=== PATIENT | female | born 1990 | race American Indian/Alaskan Native ===

== ENCOUNTER 2018-01-07 09:08 | Day surgery (SDC) | payer BC ==
--- NOTE | 2018-01-06 22:18 | History and Physical Report ---
History of Present Illness Date of examination: 01/06/18 Chief complaint: dysfunctional uterine bleeding History of present illness: Pt is a 27 year old -[place] female nulligravida who presents with dysfunctional uterine bleeding not responsive to medical management with OCPs and an apparently hyperplastic endometrium on ultrasound at [facility] on . She elects for surgical management at this time. 01/04/18: H/H 11.7/35.5 Uterus: 9.1x 4.2x 5.4 cm; Endometrium markedly thickened at 24 mm. Right ovary 2.7x 2.0 x 1.7 cm. Past History Past Medical History: other (obesity ) Past Surgical History: tonsillectomy RN CIRCULATING History: abnormal PAP smear, herpes, other (PCOS) Family/Genetic History: diabetes Social history: no significant social history - Obstetrical History : 0 Medications and Allergies Allergies Allergy/AdvReac Type Severity Reaction Status Date / Time aspirin Allergy Unknown Verified 10/08/15 12:39 Home Medications Medication Instructions Recorded Confirmed Last Taken Type Dextromethorphan/Benzocaine 1 each PO QID #40 lozenge 10/08/15 Unknown Rx [Cepacol Sorethroat-Cough Tank] Review of Systems All systems: negative - Physical Exam Breasts: Positive: deferred Cardiovascular: Regular rate Lungs: Positive: Clear to auscultation Abdomen: Positive: soft (obese) Extremities: Positive: normal Results All other labs normal. Assessment and Plan A: Dysfunctional Uterine Bleeding Abnormal pelvic ultrasound- thickened endometrial stripe PCOS Morbid Obesity P: Proceed with dilation and curettage, hysteroscopy, Myosure endometrial sampling, and other indicated procedures
[~2018-01-07 09:08] MED LIST: ANCEF/STERILE WATER 2 GM/20 ML 2 GM/20 ML SYRINGE IV NR; LACTATED RINGERS 1,000 ML IV SCH
[2018-01-07] MEDS ORDERED: VERSED IV ONE (09:55)
--- NOTE | 2018-01-07 10:11 | Anesthesia Day of Surgery ---
Anesthesia Day of Surgery - Day of Surgery Patient Examined: Yes Patient H&P Reviewed: Yes Patient is NPO: Yes
--- NOTE | 2018-01-07 10:12 | Anesthesia Consultation ---
Anesthesia Consult and Med Hx Date of service: 01/07/18 - Airway Anesthetic Teeth Evaluation: Good ROM Head & Neck: Adequate Mental/Hyoid Distance: Adequate Mallampati Class: Class II Intubation Access Assessment: Probably Good - Pulmonary Exam CTA: Yes (hx of Asthma) - Cardiac Exam Cardiac Exam: RRR - Pre-Operative Health Status ASA Pre-Surgery Classification: ASA2 Proposed Anesthetic Plan: General - Pre-Anesthesia Comment Pre-Anesthesia Comments: Given Dilaudid in preop. 1 mg IV, versed. GA with LMA ok - Pulmonary Hx Asthma: Yes
[2018-01-07] MEDS ORDERED: ZOFRAN IV PRN (10:13)
[2018-01-07] MEDS: DILAUDID IV SCH ×2 (10:25→10:35)
[2018-01-07 10:43] LABS: Hematocrit 31.4 % (30.3-42.9); Hemoglobin 10.1 gm/dl (10.1-14.3); Mean Corpuscular HGB Conc 32 % (30-34); Mean Corpuscular Hemoglobin 27 pg (28-32); Mean Corpuscular Volume 83 fl (79-97); Platelet Count 346 K/mm3 (140-440); Red Blood Count 3.78 M/mm3 (3.65-5.03); Red Cell Distribution Width 14.2 % (13.2-15.2)
[2018-01-07] MEDS ORDERED: XYLOCAINE MPF 2% ONE (12:01)
[2018-01-07] MEDS ORDERED: DIPRIVAN 10 MG/ML IV ONE (12:01)
[2018-01-07] MEDS ORDERED: SUBLIMAZE ONE (12:44)
[2018-01-07] MEDS ORDERED: NACL 0.9% IR ONE (12:54)
[2018-01-07] MEDS ORDERED: NACL 0.9% 1000 ML 1,000 ML ONE (13:30)
[2018-01-07] MEDS: DILAUDID IV PRN ×2 (13:49→14:00)
--- NOTE | 2018-01-07 14:24 | Operative Report ---
Operative Report Operative Report: Date of procedure: January 07, 2018 Preoperative diagnosis: 1) Dysfunctional Uterine Bleeding 2) Morbid Obesity 3) Abnormal Pelvic Ultrasound- hyperplastic endometrium Postoperative diagnosis: Same Procedure: 1)Diagnostic Hysteroscopy 2)Dilation and Curettage 3)Myosure endometrial sampling Surgeon: Leandra Roque M.D. Findings: 1) Small anteverted mobile uterus that sounded to 9 cm 2) Proliferative endometrium and clots on hysteroscopy 3) Cervix 1 cm dilated prior to the case Anesthesia: General with LMA Estimated blood loss: 150 mL IV fluid: 1000 mL Specimens: endometrial curettings to pathology Drains: None Complications: None Disposition: Stable to PACU Indications for procedure: The patient is a 27 year old -[place] female nulligravida who presents with dysfunctional uterine bleeding not responsive to medical management with OCPs and an apparently hyperplastic endometrium on ultrasound at [facility] on 01/04/18. She elects for surgical management at this time. Operation in detail: After the risks, benefits, alternatives and complications of the procedure were explained to the patient, she gave informed consent for the procedure. She was subsequently taken to the operating room and placed in the dorsal supine position. SCDs were noted to be in place and functioning. General anesthesia was then induced without difficulty. The patient was in placed in the dorsal lithotomy position and prepped and draped in normal sterile fashion. A timeout was performed. An exam under anesthesia was performed yielding a mobile anteverted uterus with a cervix dilated 1 cm. The bladder was then catheterized and drained of 50 mL of clear but concentrated urine. An open sided speculum was then placed into the vagina for adequate visualization of the cervix. The anterior lip of the cervix was then grasped with a tenaculum for traction. The uterus was then sounded to 9 cm. The cervix was able to accommodate the hysteroscope without dilation. At this time a hysteroscope was introduced to visualize the endometrial cavity which revealed proliferative endometrium and blood clots. A Myosure device was then used to perform endometrial sampling. All instruments were removed atraumatically from the uterus. A sharp endometrial curettage was then performed and all the curettings were sent to pathology. At this time the single-tooth tenaculum was removed from the cervix. Hemostasis was noted. All instruments were removed from the vagina atraumatically and the procedure was ended. The patient was placed into the dorsal supine position and extubated without difficulty. She was subsequently taken to the PACU in stable condition. She tolerated the procedure well. All counts were correct 2.
--- NOTE | 2018-01-07 14:25 | Short Stay Summary ---
Short Stay Documentation Date of service: 01/07/18 - History H&P: dictated Social history: no significant social history - Allergies and Medications Current Medications: Allergies aspirin Allergy (Verified 10/08/15 12:39) Unknown Home Medications Medication Instructions Recorded Confirmed Last Taken Type Norgestimate-Ethinyl Estradiol 1 tab PO DAILY 01/07/18 01/07/18 01/06/18 History [Mononessa 28 Tablet] Active Medications Hydromorphone HCl (Dilaudid) 0.5 mg IV Q10MIN [place] Stop: 01/07/18 23:59 Last Admin: 01/07/18 10:35 Dose: 0.5 mg Cefazolin Sodium (Ancef/Sterile Water 2 Gm/20 Ml) 2 gm in 20 mls @ 80 mls/hr IV PREOP NR; Protocol Stop: 01/07/18 23:59 Lactated Ringer's (Lactated Ringers) 1,000 mls @ 100 mls/hr IV DIRECT [place] Last Admin: 01/07/18 10:20 Dose: 100 mls/hr Ondansetron HCl (Zofran) 4 mg IV ONCE PRN PRN Reason: Nausea And Vomiting - Physical exam Breasts: deferred - Disposition Condition at discharge: Stable Disposition: DC-[id number] TO HOME OR SELFCARE Short Stay Discharge Plan Activity: other (Nothing in vagina or tub baths ) Weight Bearing Status: Full Weight Bearing Diet: regular Follow up with: AYAAN FORD MD [Primary Care Provider] - 7 Days MUNDO ALEJANDRE MD [Staff Physician] - 01/12/18 (appt 01/12/18 at 10 am )
[2018-01-07 16:46] VITALS: BP 116/78
--- NOTE | 2018-01-07 19:54 | Post Anesthesia Evaluation ---
- Post Anesthesia Evaluation Patient Participated: Yes Airway Patent: Yes Stable Respiratory Function: Yes Nausea/Vomiting: No Temp > 96.8F: Yes Pain Manageable: Yes Adequeate Hydration: Yes Anesthesia Complications: No
== END 2018-01-07 14:05 | disposition home or self-care (01) ==
LOC: OR 09:08
PROVIDERS: ATTEND Obstetrics & Gynecology
DX: N71.1 Chronic inflammatory disease of uterus (principal); N85.8 Other specified noninflammatory disorders of uterus; E66.01 Morbid (severe) obesity due to excess calories; J45.909 Unspecified asthma, uncomplicated; Z88.6 Allergy status to analgesic agent; Z98.890 Other specified postprocedural states; Z68.41 Body mass index [BMI] 40.0-44.9, adult
CPT/HCPCS: 36415; 58558; 81025; 85027; 86850; 86900; 86901; 88305; A4217; C1782; J0690; J1170; J2250; J2704; J3010; J7030; J7120